=== PATIENT | female | born 1995 | race Caucasian/White ===

== ENCOUNTER 2018-12-06 09:34 | Emergency (ER) | payer OTHER ==
[~2018-12-06] VITALS: Ht 172.7 cm; Wt 63.5 kg
[~2018-12-06 09:34] MED LIST: KEFLEX500 MG PO; NOHOMEMEDICATIONS; ULTRAM 50MG TAB50 MG PO
[2018-12-06 10:44] VITALS: BP 119/82
== END 2018-12-06 10:44 | disposition home or self-care (01) ==
LOC: M.ERS 09:34
DX: Z20.2 Contact with and (suspected) exposure to infections with a predominantly sexual mode of transmission (principal); F41.9 Anxiety disorder, unspecified; F32.9 Major depressive disorder, single episode, unspecified; Z91.040 Latex allergy status

== ENCOUNTER 2019-09-19 15:28 | Emergency (ER) | payer OTHER ==
[~2019-09-19] VITALS: Ht 172.7 cm; Wt 66.2 kg
[2019-09-19 16:33] VITALS: BP 115/80
== END 2019-09-19 16:34 | disposition left against medical advice (07) ==
LOC: M.ERS 15:28
DX: M54.2 Cervicalgia (principal); Z48.01 Encounter for change or removal of surgical wound dressing; Z91.040 Latex allergy status